=== PATIENT | male | born 1965 | race Caucasian/White ===

== ENCOUNTER 2017-04-27 08:43 | Day surgery (SDC) | payer OTHER ==
--- NOTE | 2017-04-27 09:13 | HP ---
[facility] - Chief Complaint Chief Complaint: left knee pain - Past Medical History Allergies/Adverse Reactions: Allergies Allergy/AdvReac Type Severity Reaction Status Date / Time metoclopramide HCl AdvReac Intermediate Rash Verified 04/25/17 14:21 [From Reglan] - Current Medications Current Medications: Home Medications Medication Instructions Recorded Losartan Potassium [Cozaar -] 50 mg PO DAILY 04/25/17 Metformin HCl 500 mg PO BID 04/25/17 Omeprazole 20 mg PO DAILY 04/25/17 Sitagliptin Phosphate [Januvia] 25 mg PO DAILY 04/25/17 Hydrocodone/Acetaminophen [Fordyce 1 each PO Q6H PRN #40 tablet MDD 4 04/27/17 5-325 Tablet] Satellite Physical Exam - Physical Examination General Appearance: Well Nourished, Well Developed, Alert & Oriented x3 ENT: Clear Lung: Normal air movement Heart: Regular rate & rhythm Extremities: Other (left knee- + swelling, + ttp, decr rom, + mcmurrays, nvi MRI + mmt) Neurological: Intact, Alert, Oriented Satellite Impression/Plan - Impression/Plan Impression: left knee mmt Operative Procedure: left knee arthroscopy with PMM Date to be Performed: 04/27/17
[2017-04-27] MEDS ORDERED: oxyCODONE HCL 5 MG TABLET PO PRN (12:02)
[2017-04-27] MEDS ORDERED: ceFAZolin SODIUM 1 GM VIAL IVPB ONE (12:02)
[2017-04-27] MEDS ORDERED: ONDANSETRON 4 MG/2 ML VIAL IVPUSH PRN (12:02)
[2017-04-27] MEDS ORDERED: LACTATED RINGERS SOLUTION 1,000 ML IV SCH (12:15)
[2017-04-27] MEDS ORDERED: BUPIVACAINE HCL/PF 0.5% (5MG/ML) 10 ML VIAL IJ ONE (12:25)
--- NOTE | 2017-04-27 12:44 | OP ---
Operative Note - Note: Operative Date: 04/27/17 Pre-Operative Diagnosis: left knee medial meniscus tear Operation: left knee arthroscopy, partial medial meniscectomy, debridement chondroplasty Post-Operative Diagnosis: Same as Pre-op Surgeon: Willi Riley Anesthesiologist/AIRLINE RESERVATIONIST: Rian Barreto Anesthesia: General, Local Specimens Removed: shavings Estimated Blood Loss (mls): 0 Drains, Volume Out (mls): 0 Blood Volume Replaced (mls): 0 Fluid Volume Replaced (mls): 500 Operative Report Dictated: Yes
[2017-04-27] MEDS ORDERED: ACETAMINOPHEN INJECTION 100 ML IVPB ONE (13:45)
[2017-04-27] MEDS ORDERED: ACETAMINOPHEN 1000 MG/100 ML VIAL (NON FORMULARY) IVPB ONE ×2 (13:50→14:19)
[2017-04-27] MEDS ORDERED: oxyCODONE HCL 5 MG TABLET ONE (14:39)
[2017-04-27] MEDS ORDERED: oxyCODONE HCL 5 MG TABLET PO ONE (14:43)
[2017-04-27] MEDS ORDERED: ONDANSETRON 4 MG/2 ML VIAL ONE (15:37)
[2017-04-27] MEDS ORDERED: ONDANSETRON 4 MG/2 ML VIAL IVPB ONE (15:45)
--- NOTE | 2017-04-28 09:41 | OP ---
DATE OF OPERATION: DATE OF DICTATION: 04/27/2017 OPERATION: Left knee arthroscopy, partial medial meniscectomy, and debridement chondroplasty. PREOPERATIVE DIAGNOSIS: Left knee medial meniscus tear. POSTOPERATIVE DIAGNOSIS: Left knee medial meniscus tear, plus osteoarthritis. SURGEON: Willi Riley M.D. CALCINER OPERATOR HELPER: None. ANESTHESIOLOGIST: Rian Barreto CRNA ANESTHESIA: LMA with intra-articular injection of 20 mL of 0.5% Marcaine. SPECIMENS: Arthroscopic shavings. DRAINS: None. COMPLICATIONS: None. FLUID REPLACEMENT: 500 mL. BLOOD LOSS: None. BLOOD GIVEN: None. INDICATIONS FOR PROCEDURE: The patient is a 51-year-old male with the preoperative diagnosis of a left knee medial meniscus tear. After understanding the potential risks, complications, alternatives and benefits of surgery versus nonsurgical treatment, the patient elected to undergo this procedure. PROCEDURE: The patient was brought to the operating room, peripheral IV placed and IV sedation given. Two grams of IV Ancef was given. LMA anesthesia was induced. A tourniquet was applied to the left lower thigh. A Styrofoam ring was used. Ample was placed throughout. The left lower extremity was prepped and draped in sterile fashion, elevated, exsanguinated with an Esmarch bandage and tourniquet inflated to 275 mm of mercury. A superomedial outflow portal was established. A lateral portal was established and arthroscope was introduced into the joint under direct visualization. A medial portal was established using a spinal needle. A probe was introduced into the medial compartment. Immediately the patient was seen to have some osteoarthritic changes in the knee. The patient had grade 2 chondromalacia of the medial tibial plateau and grade 2 to 3 of the medial femoral condyle. The patient had a frayed, torn posterior horn of the medial meniscus. Therefore, this was debrided with the curved shaver and a debridement chondroplasty was performed as well. Photographs were taken before and after. In the intracondylar notch, the patient had some fraying of the anterior cruciate ligament. These fibers were photographed and removed. The rest of the ACL was probed and seemed to be intact and quite good. Next, our attention turned to the lateral compartment, where the lateral meniscus looked good. The left tibial plateau had grade 0 to grade 1 osteoarthritic changes. The lateral femoral condyle looked good. Next, our attention turned to the patellofemoral joint. On the medial femoral condyle, further up by the medial femoral trochlea, the patient had an area of grade 4 chondromalacia, oblong, roughly the size of a nickel. This area was gently debrided with the curved shaver. The patient also had osteoarthritic changes on the surface of the patella. These were photographed as well but otherwise left alone. The area was copiously irrigated and washed out, fully explored. All debris was removed. The arthroscopy portals were closed with 3-0 nylon sutures. Then 20 mL of 0.5% Marcaine introduced into the joint. The area was then washed and dried, and covered with Xerofoam, 4 x 4 gauze, Webril and a 6-inch HEENA bandage. The tourniquet was taken down after a total tourniquet time of 16 minutes. There were no complications during the case. The patient tolerated the procedure quite well and was brought to the ambulatory recovery room in stable condition. Gene [id number]
--- NOTE | 2017-04-28 15:52 | PATH ---
Surgical Pathology Report Patient Name: EM WOOD [facility]. Rec. #: [id number] /Age/Gender: 1965 (Age: 51) / M Account: [id number] Location: [facility] Taken: 04/27/2017 Received: 04/27/2017 Reported: 04/28/2017 Physicians: Willi Riley M.D. Specimen(s) Received LEFT KNEE SHAVINGS Clinical History Left knee tear Final Diagnosis KNEE, LEFT, ARTHROSCOPIC SHAVING: PORTIONS OF SYNOVIUM AND HYALINE CARTILAGE CONSISTENT WITH ARTHROSCOPIC SHAVINGS. Electronically Signed Johan Sims M.D. Gross Description Received in formalin, labeled "left knee arthroscopy," is a 5.0 x 4.2 x 0.6 cm. aggregate of monet-yellow soft tissue fragments. A client service representative portion is submitted in one cassette. /04/27/2017 saudi04/27/2017
== END 2017-04-27 16:10 | disposition home or self-care (01) ==
LOC: JASU-SURG 08:43
PROVIDERS: ATTEND Orthopaedic Surgery
PROC: 0SBD4ZZ Excision of Left Knee Joint, Percutaneous Endoscopic Approach (ICD-10-PCS; principal; 2017-04-27 10:30)
DX: S83.242A Other tear of medial meniscus, current injury, left knee, initial encounter (principal); M17.12 Unilateral primary osteoarthritis, left knee; X58.XXXA Exposure to other specified factors, initial encounter; Y93.9 Activity, unspecified; Y92.9 Unspecified place or not applicable; Y99.9 Unspecified external cause status
CPT/HCPCS: 88304-TC; 94760